=== PATIENT | male | born 1965 | race Caucasian/White ===

== ENCOUNTER → 2018-11-03 | Outpatient (CLI) | payer BC ==
--- NOTE | 2018-11-03 11:25 | US ---
EXAMINATION TYPE: US scrotum with doppler. Grayscale and color Doppler Duplex imaging performed of t he scrotum. DATE OF EXAM: 11/03/2018 COMPARISON: NONE CLINICAL HISTORY: N50.89 Testicular mass. palpable on the left EXAM MEASUREMENTS: TESTICLES: Right Testicle: 4.5 x 2.5 x 3.3 cm Left Testicle: 4.7 x 2.8 x 4.7 cm EPIDIDYMIS HEAD: Right Epididymis: 1.0 cm, 1.2cm cystic cluster Left Epididymis: 2.1 cm, 4.0cm cluster of cysts seen near left epididymis. Doppler performed to assess for testicular vascularity; good bilateral color flow and waveforms are s een. There is no evidence of testicular torsion. Presence of hydroceles: mild on the right and left Presence of varicoceles: no IMPRESSION: 1. Numerous benign left epididymal cysts clustered together measuring up to 4.0 cm. Smaller benign ri ght epididymal cysts are also seen. No suspicious intratesticular mass. 2. Trace bilateral hydroceles.
== END | disposition home or self-care (01) ==
LOC: RADUSWWP 10:42
PROVIDERS: ATTEND Family Medicine
DX: N50.3 Cyst of epididymis (principal)
CPT/HCPCS: 76870; 93975

== ENCOUNTER 2019-07-17 18:09 | Inpatient (IN) | payer BC ==
[2019-07-17] MEDS ORDERED: MORPHINE SULFATE 4 MG/ML SYRINGE IVP STA (19:51)
[2019-07-17] MEDS ORDERED: ONDANSETRON 4 MG/2 ML VIAL IVP STA (19:55)
--- NOTE | 2019-07-17 20:14 | ED ---
Extremity Problem HPI <Robb Torres - Last Filed: 07/17/19 23:23> - General Source: patient Mode of arrival: wheelchair Limitations: no limitations <Annamarie Pollack - Last Filed: 07/17/19 23:53> - General Chief complaint: Extremity Problem,Nontraumatic Stated complaint: Leg pain Time Seen by Provider: 07/17/19 19:19 - History of Present Illness Initial comments: 54-year-old male patient presents to the emergency department today for evaluation of left leg pain. Patient states for the last week he has had an intense pain to the left calf. Patient denies any swelling to the leg. Patient states the pain worsens significantly with ambulation. Patient states he has chronic low back pain. States the leg hurts from the knee down. Denies any saddle anesthesia or loss of bowel or bladder control. Denies any increase or change to his back pain. He denies fever or chills. Denies any known injury. States he is also having pain to the left great toe which did seem to resolve couple of days ago. Patient does have some discoloration to the fourth and fifth toe on the left foot, states his been like this for 1 month. Denies any known vascular issues. States he was a smoker, quit 15 years ago. Patient denies any recent rash, shortness breath, chest pain, abdominal pain, nausea, v omiting, diarrhea, constipation, dizziness, weakness, hematuria, dysuria, urinary urgency, urinary frequency, headache, visual changes, or any other complaints. (Annamarie Pollack) - Related Data Allergies Allergy/AdvReac Type Severity Reaction Status Date / Time ibuprofen [From Motrin] AdvReac Abdominal Verified 07/17/19 18:26 Pain Review of Systems ROS Other: All systems not noted in ROS Statement are negative. <Robb Torres - Last Filed: 07/17/19 23:23> ROS Other: All systems not noted in ROS Statement are negative. <Annamarie Pollack - Last Filed: 07/17/19 23:53> ROS Statement: Those systems with pertinent positive or pertinent negative responses have been documented in the HPI. Past Medical History Past Medical History: No Reported History History of Any Multi-Drug Resistant Organisms: None Reported Past Surgical History: Appendectomy Past Psychological History: No Psychological Hx Reported Smoking Status: Never smoker Past Alcohol Use History: None Reported Past Drug Use History: None Reported <Annamarie Pollack M - Last Filed: 07/17/19 23:53> General Exam Limitations: no limitations General appearance: alert, in no apparent distress, other (This is a well- developed, well-nourished adult male patient in no acute distress. Vital signs upon presentation are temperature 98.1F, pulse 86, respirations 18, blood pressure 154/96, pulse ox 99% on room air.) Eye exam: Present: normal appearance, PERRL, EOMI. Absent: scleral icterus, conjunctival injection, periorbital swelling ENT exam: Present: normal exam, normal oropharynx, mucous membranes moist Respiratory exam: Present: normal lung sounds bilaterally. Absent: respiratory distress, wheezes, rales, rhonchi, stridor Cardiovascular Exam: Present: regular rate, normal rhythm, normal heart sounds. Absent: systolic murmur, diastolic murmur, rubs, gallop, clicks Extremities exam: Present: full ROM, tenderness (Left), normal capillary refill, other (Skin to the foot is cool. Cap refill is 4-5 seconds. There is blue/purple discoloration noted to the left fourth and fifth toe. Left pedal pulse is obtainable only by Doppler, unable to palpate or find the left post tibial pulse by Doppler. Right lower extremity is pink, warm, dry. Pedal and posttibial pulses are 2+ and palpable.). Absent: normal inspection, pedal edema, joint swelling, calf tenderness Neurological exam: Present: alert, oriented X3, CN II-XII intact Psychiatric exam: Present: normal affect, normal mood Skin exam: Present: warm, dry, intact, normal color. Absent: rash <Annamarie Pollack M - Last Filed: 07/17/19 23:53> Course Vital Signs 07/17/19 07/17/19 07/17/19 18:24 20:27 21:33 Temperature 98.1 F 97.9 F Pulse Rate 86 67 71 Respiratory 18 18 16 Rate Blood Pressure 154/96 127/93 132/81 O2 Sat by Pulse 99 99 97 Oximetry 07/17/19 22:52 Temperature Pulse Rate 66 Respiratory 18 Rate Blood Pressure 125/98 O2 Sat by Pulse 97 Oximetry Medical Decision Making - Lab Data Result diagrams: 07/17/19 21:31 07/17/19 21:31 <Robb Torres - Last Filed: 07/17/19 23:23> - Lab Data Result diagrams: 07/17/19 21:31 07/17/19 21:31 - Radiology Data Radiology results: report reviewed, image reviewed <Annamarie Pollack - Last Filed: 07/17/19 23:53> - Medical Decision Making PA attestation: I, Dr. Robb Torres, personally saw and examined the patient. I have reviewed and agree with the resident/PA findings, including all diagnostic interpretations and treatment plans as written unless otherwise stated. I was present for the perkins portions of any procedures performed and inclusive time noted for any critical care statement. Patient was seen and evaluated at bedside along with nurse practitioner. The, patient is a 54-year-old male presents with acute on chronic ischemic symptoms to the left lower extremity. Vital signs are stable. He is here today because he is having medial left lower extremity pain. He has a nonpalpable DP pulse and PT pulse. He does have dopplerable DP pulse of the left lower extremity. CT angiogram of the left lower extremity shows acute thrombotic occlusions to the left lower extremity and multiple areas. Discussed radiology films with vascular surgeon Dr. Lomas recommends patient be admitted to medicine team for possible thrombolysis tomorrow. He recommends the patient be started on heparin. As reviewed. No likely acidosis. Patient's physical examination does not suggest significant acute arterial occlusion given that there is no significant melena the leg. Temperature is similar on both sides. He denies any paresthesias while at rest. Given that patient has clinical presentation concerning for end organ failure discussed patient case with Dr. Coleman was land leasing information clerk for intensive care unit request that patient does not meet criteria for ICU admission that patient stable for the floor. Patient be admitted to [facility] after discussion with Dr. Dolan (Robb Torres) 54-year-old male patient presented to the emergency department today for evaluation of left leg and calf pain. Physical examination did reveal a cool foot, discoloration to the fourth and fifth digits on the left foot, and nonpalpable pedal and posttibial pulses. Was able to find the pedal pulse with Doppler. Patient had left calf tenderness. Cap refill was slow. CT of the aorta with runoff to the lower extremities was obtained and did show acute thrombotic occlusions to the arterial vasculature in the left lower extremity. Case was discussed with my attending physician Dr. Torres, he discussed case with land leasing information clerk vascular surgery. Patient will be admitted for possible procedure tomorrow. We will start high dose heparin and admit to Dr. Dolan, [facility] physician group. Patient is updated regarding diagnosis and plan of care, he is agreeable. (Annamarie Pollack) - Lab Data Lab Results 07/17/19 07/17/19 07/17/19 Range/Units 21:31 21:31 21:31 WBC 17.5 H (3.8-10.6) k/uL RBC 5.34 (4.30-5.90) m/uL Hgb 15.4 (13.0-17.5) gm/dL Hct 46.5 (39.0-53.0) % MCV 87.0 (80.0-100.0) fL MCH 28.8 (25.0-35.0) pg MCHC 33.2 (31.0-37.0) g/dL RDW 12.3 (11.5-15.5) % Plt Count 344 (150-450) k/uL Neutrophils % 74 % Lymphocytes % 16 % Monocytes % 6 % Eosinophils % 2 % Basophils % 1 % Neutrophils # 12.9 H (1.3-7.7) k/uL Lymphocytes # 2.9 (1.0-4.8) k/uL Monocytes # 1.0 (0-1.0) k/uL Eosinophils # 0.4 (0-0.7) k/uL Basophils # 0.2 (0-0.2) k/uL PT (9.0-12.0) sec INR (<1.2) APTT (22.0-30.0) sec Sodium 137 (137-145) mmol/L Potassium 4.8 (3.5-5.1) mmol/L Chloride 107 (98-107) mmol/L Carbon Dioxide 19 L (22-30) mmol/L Anion Gap 11 mmol/L BUN 16 (9-20) mg/dL Creatinine 0.82 (0.66-1.25) mg/dL Est GFR (CKD-EPI)AfAm >90 (>60 ml/min/1.73 sqM) Est GFR (CKD-EPI)NonAf >90 (>60 ml/min/1.73 sqM) Glucose 97 (74-99) mg/dL Plasma Lactic Acid Td 0.7 (0.7-2.0) mmol/L Calcium 9.5 (8.4-10.2) mg/dL Total Bilirubin 0.6 (0.2-1.3) mg/dL AST 28 (17-59) U/L ALT 34 (4-49) U/L Alkaline Phosphatase 66 (38-126) U/L Total Protein 7.5 (6.3-8.2) g/dL Albumin 4.2 (3.5-5.0) g/dL 07/17/19 Range/Units 21:31 WBC (3.8-10.6) k/uL RBC (4.30-5.90) m/uL Hgb (13.0-17.5) gm/dL Hct (39.0-53.0) % MCV (80.0-100.0) fL MCH (25.0-35.0) pg MCHC (31.0-37.0) g/dL RDW (11.5-15.5) % Plt Count (150-450) k/uL Neutrophils % % Lymphocytes % % Monocytes % % Eosinophils % % Basophils % % Neutrophils # (1.3-7.7) k/uL Lymphocytes # (1.0-4.8) k/uL Monocytes # (0-1.0) k/uL Eosinophils # (0-0.7) k/uL Basophils # (0-0.2) k/uL PT 11.6 (9.0-12.0) sec INR 1.1 (<1.2) APTT 24.1 (22.0-30.0) sec Sodium (137-145) mmol/L Potassium (3.5-5.1) mmol/L Chloride (98-107) mmol/L Carbon Dioxide (22-30) mmol/L Anion Gap mmol/L BUN (9-20) mg/dL Creatinine (0.66-1.25) mg/dL Est GFR (CKD-EPI)AfAm (>60 ml/min/1.73 sqM) Est GFR (CKD-EPI)NonAf (>60 ml/min/1.73 sqM) Glucose (74-99) mg/dL Plasma Lactic Acid Td (0.7-2.0) mmol/L Calcium (8.4-10.2) mg/dL Total Bilirubin (0.2-1.3) mg/dL AST (17-59) U/L ALT (4-49) U/L Alkaline Phosphatase (38-126) U/L Total Protein (6.3-8.2) g/dL Albumin (3.5-5.0) g/dL - Radiology Data CT of the abdominal aorta with runoff was obtained. Report was reviewed in its entirety. Impression by Dr. 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 There is some collateral flow reconstitution of the left femoral artery. There is complete thrombosis of the left posterior tibial and peroneal artery. Sigmoid diverticulosis. (Annamarie Pollack) Disposition <Robb Torres - Last Filed: 07/17/19 23:23> Decision to Admit Reason: Admit from EC Decision Date: 07/17/19 Decision Time: 21:22 <Annamarie Pollack - Last Filed: 07/17/19 23:53> Clinical Impression: Thrombosis of artery of left lower extremity Disposition: ADMITTED IP TO THIS [facility] Condition: Serious Referrals: Rg Srinivasan MD [Primary Care Provider] - 1-2 days
--- NOTE | 2019-07-17 21:01 | CT ---
EXAMINATION TYPE: CT angio abd aorta w/Runoff DATE OF EXAM: 07/17/2019 COMPARISON: None HISTORY: LT leg pain, pulseless, black toes. CT DLP: 1194.2 mGycm Automated exposure control for dose reduction was used. CONTRAST: Performed with IV Contrast, patient injected with 125 mL of Isovue 370. Multiple axial sections were obtained from the level of the diaphragm to the bottom of the feet with intravenous contrast. There are 3-D post processed images. Heart size is normal. There is no pericardial effusion. Abdominal aorta is patent. There is mild plaq ue formation on the posterior wall of the lower abdominal aorta. There is arterial flow in the celiac artery and superior mesenteric artery. There is bilateral arterial flow in the renal arteries withou t evidence of stenosis. There is complete occlusion of the left common iliac artery at its origin. Th ere is arterial flow in the right common iliac artery and the right internal and external iliac arter y. There is arterial flow in the right femoral artery. There are some collateral vessels in the pelvis reconstituting the left femoral artery and the left i nguinal region. There is arterial flow in the left femoral and profunda femoris arteries. There is bilateral arterial flow in the popliteal arteries. There is arterial flow in the right side in the anterior tibial and posterior tibial and peroneal arteries. On the left side there is substantially only flow in the anterior tibial artery. There is arterial flow on the right side in the anterior and posterior tibial artery at the ankle. Th ere is only flow in the left anterior tibial artery at the ankle. I do not see evidence of hemodynami c stenosis in the femoral and popliteal arteries. Bladder distends smoothly. There are multiple sigmoid diverticula. There is no sign of diverticulitis . There is no mesenteric edema. There is no ascites or free air. There is no sign of a bowel obstruct ion. There is no adrenal mass. Kidneys show normal contrast opacification. There is no hydronephrosis . Liver spleen stomach pancreas gallbladder appear normal. Visualized bony structures are intact. IMPRESSION: There is complete thrombosis of the left common iliac artery at its origin. There is some collateral flow and reconstitution of the left femoral artery. There is complete thrombosis of the left posterio r tibial and peroneal artery. Sigmoid diverticulosis.
[2019-07-17] MEDS ORDERED: HEPARIN SODIUM,PORCINE 5,000 UNIT/ML 1 ML VIAL IV PRN (21:18)
[2019-07-17] MEDS ORDERED: HEPARIN SODIUM,PORCINE 10,000 UNIT/ML 1 ML VIAL IV ONE (21:18)
[2019-07-17 22:01] LABS: Basophils # (A) 0.2 k/uL (0-0.2); Basophils % (A) 1 %; Eosinophils # (A) 0.4 k/uL (0-0.7); Eosinophils % (A) 2 %; HCT 46.5 % (39.0-53.0); HGB 15.4 gm/dL (13.0-17.5); Lymphocytes # (A) 2.9 k/uL (1.0-4.8); Lymphocytes % (A) 16 %; MCH 28.8 pg (25.0-35.0); MCHC 33.2 g/dL (31.0-37.0); Mean Platelet Volume 8.5; Monocytes % (A) 6 %; Neutrophils # (A) 12.9 k/uL (1.3-7.7); Neutrophils % (A) 74 %; Platelet Count 344 k/uL (150-450); RBC 5.34 m/uL (4.30-5.90); RDW 12.3 % (11.5-15.5); WBC 17.5 k/uL (3.8-10.6)
[2019-07-17 22:14] LABS: ALT 34 U/L (4-49); AST 28 U/L (17-59); African American GFR (CKD) >90 (>60 ml/min/1.73 sqM); Albumin 4.2 g/dL (3.5-5.0); Alkaline Phosphatase 66 U/L (38-126); Anion Gap 11 mmol/L; Blood Urea Nitrogen 16 mg/dL (9-20); Calcium 9.5 mg/dL (8.4-10.2); Carbon Dioxide 19 mmol/L (22-30); Chloride 107 mmol/L (98-107); Glucose 97 mg/dL (74-99); INR 1.1 (<1.2); Non-African American GFR(CKD) >90 (>60 ml/min/1.73 sqM); Partial Thromboplastin Time 24.1 sec (22.0-30.0); Potassium 4.8 mmol/L (3.5-5.1); Prothrombin Time 11.6 sec (9.0-12.0); Sodium 137 mmol/L (137-145); Total Bilirubin 0.6 mg/dL (0.2-1.3); Total Protein 7.5 g/dL (6.3-8.2)
[2019-07-17] MEDS: HEPARIN SOD,PORK IN 0.45% NACL 25,000 UNIT in 0.45% NACL 1 250ML.BAG IV SCH (22:51)
[2019-07-17] MEDS ORDERED: NALOXONE 0.4 MG/ML 1 ML VIAL IV PRN (23:23)
[2019-07-17] MEDS ORDERED: ONDANSETRON 4 MG/2 ML VIAL IVP PRN (23:23)
--- NOTE | 2019-07-18 00:45 | P.HPIM ---
History of Present Illness H&P Date: 07/17/19 Patient is a 54-year-old male with a PMH of tobacco abuse who presented to the ED with complaints of left leg pain. The patient reports that for the past 4-5 months, he had been having left foot pain with walking. He attributed it to his she was and did not pay much attention to it. He reports that 3 weeks ago, he developed a left foot pain at rest. The pain gradually worsened and one week ago, he began to have left leg pain, mostly localized to his left calf, at rest, and worsened significantly with activity. The patient has not seen a physician for this complaint. He denied noticing swelling of the leg. He denied any previous history of clots or being on blood thinners in the past. At the time of the interview, the patient reported 4 out of 10 pain in the left leg, worsened with activity. The patient also denied any additional complaints. He denied chest pain, shortness of nausea, vomiting, fever, chills, or cough. He denied noticing any leg swelling or redness. He denied any numbness or tingling of the leg. He denied recent travel. The patient underwent an extensive ev aluation in the emergency room with a CT angiogram of the abdominal aorta with runoff showing a complete thrombosis of the left common iliac artery at its origin with some collateral flow and reconstitution of the left femoral artery. There was also complete thrombosis of the left posterior tibial and peroneal arteries along with sigmoid diverticulosis incidental finding. Laboratory evaluation had revealed a WBC count 17.5, hemoglobin 15.4, platelet is 244, sodium 137, potassium 4.8, BUN 16, creatinine 0.8, and lactic acid 0.7. As per the emergency room documentation, the patient was discussed with vascular surgeon Dr. Lomas, who recommended initiating the patient on Heparin infusion with thrombolysis planned for tomorrow. Review of Systems Pertinent positives and negatives as discussed in HPI, a complete review of systems was performed and all other systems are negative. Past Medical History Past Medical History: No Reported History History of Any Multi-Drug Resistant Organisms: None Reported Past Surgical History: Appendectomy Past Psychological History: No Psychological Hx Reported Smoking Status: Never smoker Past Alcohol Use History: None Reported Past Drug Use History: None Reported Medications and Allergies Allergies Allergy/AdvReac Type Severity Reaction Status Date / Time ibuprofen [From Motrin] AdvReac Abdominal Verified 07/17/19 18:26 Pain Physical Exam Vitals: Vital Signs Temp Pulse Resp BP Pulse Ox 07/17/19 22:52 66 18 125/98 97 07/17/19 21:33 97.9 F 71 16 132/81 97 07/17/19 20:27 67 18 127/93 99 07/17/19 18:24 98.1 F 86 18 154/96 99 Intake and Output 07/17/19 07/17/19 07/18/19 14:59 22:59 06:59 Other: Weight 96.162 kg General: non toxic, in mild distress, appears at stated age, overweight Derm: no unusual rashes/lesions no unusual ecchymoses, warm, dry Head: atraumatic, normocephalic, symmetric Eyes: EOMI, no lid lag, anicteric sclera, pupils equal round reactive to light ENT: Nose and ears atraumatic, no thrush, no pharyngeal erythema Neck: No thyromegaly, no cervical lymphadenopathy, trachea midline, supple Mouth: no lip lesion, mucus membranes moist Cardiovascular: S1S2 reg, no murmur, positive posterior tibial pulse not palpable on L side, scant dorsalis pedis pulse on L side with regular pulse on R side, capillary refill less than 2 seconds Lungs: CTA bilateral, no rhonchi, no rales , no accessory muscle use Abdominal: soft, nontender to palpation, no guarding, no appreciable organomegaly, normal bowel sounds Ext: no gross muscle atrophy, muscle strength 5 out of 5 in all 4 extremities grossly except LLE due to pain, no contractures, no LLE erythema or edema noted, no LLE mottling with temperature of LEs equal luh Neuro: CN II-XI grossly intact, light touch intact all 4 extremities, finger to nose within normal limits, Psych: Alert, oriented, appropriate affect Results CBC & Chem 7: 07/17/19 21:31 07/17/19 21:31 Labs: Abnormal Lab Results - Last 24 Hours (Table) 07/17/19 07/17/19 Range/Units 21:31 21:31 WBC 17.5 H (3.8-10.6) k/uL Neutrophils # 12.9 H (1.3-7.7) k/uL Carbon Dioxide 19 L (22-30) mmol/L Assessment and Plan Plan: L leg arterial thrombosis -Vascular surgery consulted -Continue with heparin infusion -Planned for thrombolysis in a.m. -Neurovascular checks -Pain control Leukocytosis -Likely due to acute stressor -No signs of active infection at this time -Monitor CMP DVT prophylaxis -Heparin infusion The patient is admitted with an anticipated greater than 2 midnight stay for evaluation of leg pain. CODE STATUS:Full Code Discussed with: Patient Anticipated discharge date: 2-[address]: Home A total of 35 minutes was spent on the care of this complex patient more than 50% of the time was spent in counseling and care coordination.
[2019-07-18 06:36] LABS: Basophils # (A) 0.4 k/uL (0-0.2); Basophils % (A) 3 %; Eosinophils # (A) 0.2 k/uL (0-0.7); Eosinophils % (A) 2 %; HCT 47.9 % (39.0-53.0); HGB 15.8 gm/dL (13.0-17.5); Lymphocytes # (A) 2.8 k/uL (1.0-4.8); Lymphocytes % (A) 21 %; MCH 29.8 pg (25.0-35.0); MCV 90.1 fL (80.0-100.0); Mean Platelet Volume 8.9; Monocytes # (A) 0.9 k/uL (0-1.0); Monocytes % (A) 7 %; Neutrophils # (A) 8.7 k/uL (1.3-7.7); Neutrophils % (A) 66 %; Platelet Count 558 k/uL (150-450); RBC 5.31 m/uL (4.30-5.90); RDW 12.4 % (11.5-15.5); WBC 13.3 k/uL (3.8-10.6)
[2019-07-18] MEDS: MORPHINE SULFATE 4 MG/ML SYRINGE IV PRN ×4 (07:34→22:14)
[2019-07-18] MEDS: SODIUM CHLORIDE 0.9% 1,000 ML IV SCH ×2 (07:40→13:25)
--- NOTE | 2019-07-18 09:41 | P.PN ---
Subjective Chart was reviewed patient was seen and examined. Patient had subacute onset of the pain in the left cough. He had preceding pain and claudication the left foot for many weeks prior to this. CT in November showed thrombosis in the left leg arterial system. His no heparin drip tolerating well. He has history of smoking very remotely stopped smoking 10 years ago. No any other known conditions. Objective - Vital Signs Vital signs: Vital Signs Temp 97.6 F 07/18/19 08:00 Pulse 69 07/18/19 08:00 Resp 18 07/18/19 08:00 BP 137/83 07/18/19 08:00 Pulse Ox 98 07/18/19 08:00 Intake & Output 07/17/19 07/18/19 07/18/19 18:59 06:59 18:59 Intake Total 137.318 Output Total 800 Balance -662.682 Weight 96.162 kg 91.5 kg Intake: Intake, IV Titration 137.318 Amount Heparin Sod,Pork in 0.45% 137.318 NaCl 25,000 unit In 0.45 % NaCl 1 250ml.bag @ 18 UNITS/KG/HR 17.309 mls/hr IV .[id number] [facility] Rx#: [id number] Output: Urine 800 Other: Voiding Method Urinal Urinal - Labs CBC & Chem 7: 07/18/19 05:16 07/17/19 21:31 Labs: Abnormal Lab Results - Last 24 Hours (Table) 07/17/19 07/17/19 07/18/19 Range/Units 21:31 21:31 05:16 WBC 17.5 H (3.8-10.6) k/uL Plt Count (150-450) k/uL Neutrophils # 12.9 H (1.3-7.7) k/uL Basophils # (0-0.2) k/uL APTT 52.6 H (22.0-30.0) sec Carbon Dioxide 19 L (22-30) mmol/L 07/18/19 Range/Units 05:16 WBC 13.3 H (3.8-10.6) k/uL Plt Count 558 H (150-450) k/uL Neutrophils # 8.7 H (1.3-7.7) k/uL Basophils # 0.4 H (0-0.2) k/uL APTT (22.0-30.0) sec Carbon Dioxide (22-30) mmol/L Assessment and Plan Plan: 54-year-old male with remote history of smoking presenting now with the thrombosis in the left leg arterial system. He is maintained on heparin platelets and statin and vascular surgery consultation Depends on the outcomes of his intervention and the reason for this occlusion he might need further workup for thromboembolic state. Order echocardiogram, monitor on telemetry to evaluate for any atrial fibrillation, a need hypercoagulability workup. He needs heart event monitor on discharge. Check A1c and lipid panel.
--- NOTE | 2019-07-18 10:30 | P.GSCN ---
<Mariela Cotton - Last Filed: 07/18/19 15:05> History of Present Illness Consult date: 07/18/19 History of present illness: Patient is 54-year-old male with past medical history of tobacco abuse that presented to the emergency department with complaints of left leg pain. He reports that the pain started approximately 1 month ago in his left foot and big toe, then the pain stopped in his foot, however the pain was then began in the left leg. He denies any redness or swelling. He denies any recent traveling or injuries. The patient states he has no significant medical history, no family history of any clotting or bleeding disorders. Denies any known vascular disease. He denies any shortness of breath or chest pain. He states pain in his left lower extremity has improved with pain medications. CT angiogram of abdominal aorta with runoff showed complete thrombosis of the left common iliac artery at its origin. There is some collateral flow and reconstitution of the left femoral artery. There is complete thrombosis of the left posterior tibial and peroneal artery. Review of Systems Review of systems complete and all pertinent positives and negatives as reported in the HPI. Past Medical History Past Medical History: No Reported History History of Any Multi-Drug Resistant Organisms: None Reported Past Surgical History: Appendectomy Additional Past Surgical History / Comment(s): left knee orthoscopic surgery Past Anesthesia/Blood Transfusion Reactions: No Reported Reaction Past Psychological History: No Psychological Hx Reported Smoking Status: Never smoker Past Alcohol Use History: None Reported Past Drug Use History: None Reported - Past Family History Father Family Medical History: Myocardial Infarction (MO) Additional Family Medical History / Comment(s): of [place] at age 50 Mother Family Medical History: Cancer, Coronary Artery Disease (CAD) Medications and Allergies Home Medications Medication Instructions Recorded Confirmed Type Olopatadine HCl [Patanol] 1 drop BOTH EYES Q12H PRN 07/18/19 07/18/19 History Allergies Allergy/AdvReac Type Severity Reaction Status Date / Time ibuprofen [From Motrin] AdvReac Nausea & Verified 07/18/19 08:13 Vomiting & Diarrhea Surgical - Exam Vital Signs Temp Pulse Resp BP Pulse Ox 98.1 F 86 18 154/96 99 07/17/19 18:24 07/17/19 18:24 07/17/19 18:24 07/17/19 18:24 07/17/19 18:24 General appearance: The patient is alert, oriented, in no acute distress. HET: Head is normocephalic and atraumatic. Neck: Supple without lymphadenopathy. Trachea midline. Heart: S1 S2. Regular rate and rhythm. Lungs: No crackles or wheezes are heard. Abdomen: Soft, nontender, nondistended with bowel sounds. Extremities: Normal skin color and turgor. Bilateral lower extremities warm to the touch. No cyanosis, rash, ulceration, clubbing, or edema. Radial pulses are 2/4 bilaterally. Left lower extremity monophasic femoral and her dorsalis pedis Doppler signal, absent popliteal and posterior tibialis signal. Left fifth toe with mild erythema. Neurological: No focal deficits. Strength and sensation are grossly intact. Motor sensory intact to bilateral lower extremities. Results - Labs 07/18/19 05:16 07/17/19 21:31 Abnormal Lab Results - Last 24 Hours (Table) 07/17/19 07/17/19 07/18/19 Range/Units 21:31 21:31 05:16 WBC 17.5 H (3.8-10.6) k/uL Plt Count (150-450) k/uL Neutrophils # 12.9 H (1.3-7.7) k/uL Basophils # (0-0.2) k/uL APTT 52.6 H (22.0-30.0) sec Carbon Dioxide 19 L (22-30) mmol/L 07/18/19 Range/Units 05:16 WBC 13.3 H (3.8-10.6) k/uL Plt Count 558 H (150-450) k/uL Neutrophils # 8.7 H (1.3-7.7) k/uL Basophils # 0.4 H (0-0.2) k/uL APTT (22.0-30.0) sec Carbon Dioxide (22-30) mmol/L Diabetes panel 07/17/19 Range/Units 21:31 Sodium 137 (137-145) mmol/L Potassium 4.8 (3.5-5.1) mmol/L Chloride 107 (98-107) mmol/L Carbon Dioxide 19 L (22-30) mmol/L BUN 16 (9-20) mg/dL Creatinine 0.82 (0.66-1.25) mg/dL Glucose 97 (74-99) mg/dL Calcium 9.5 (8.4-10.2) mg/dL AST 28 (17-59) U/L ALT 34 (4-49) U/L Alkaline Phosphatase 66 (38-126) U/L Total Protein 7.5 (6.3-8.2) g/dL Albumin 4.2 (3.5-5.0) g/dL Calcium panel 07/17/19 Range/Units 21:31 Calcium 9.5 (8.4-10.2) mg/dL Albumin 4.2 (3.5-5.0) g/dL Pituitary panel 07/17/19 Range/Units 21:31 Sodium 137 (137-145) mmol/L Potassium 4.8 (3.5-5.1) mmol/L Chloride 107 (98-107) mmol/L Carbon Dioxide 19 L (22-30) mmol/L BUN 16 (9-20) mg/dL Creatinine 0.82 (0.66-1.25) mg/dL Glucose 97 (74-99) mg/dL Calcium 9.5 (8.4-10.2) mg/dL Adrenal panel 07/17/19 Range/Units 21:31 Sodium 137 (137-145) mmol/L Potassium 4.8 (3.5-5.1) mmol/L Chloride 107 (98-107) mmol/L Carbon Dioxide 19 L (22-30) mmol/L BUN 16 (9-20) mg/dL Creatinine 0.82 (0.66-1.25) mg/dL Glucose 97 (74-99) mg/dL Calcium 9.5 (8.4-10.2) mg/dL Total Bilirubin 0.6 (0.2-1.3) mg/dL AST 28 (17-59) U/L ALT 34 (4-49) U/L Alkaline Phosphatase 66 (38-126) U/L Total Protein 7.5 (6.3-8.2) g/dL Albumin 4.2 (3.5-5.0) g/dL Assessment and Plan Assessment: Left lower extremity pain Thrombosis of the left common iliac artery Complete thrombosis of the left posterior tibial and peroneal artery Plan: Discussed patient with Dr. Lomas. Patient was started on a heparin drip, will continue until further evaluation. Keep patient nothing by mouth. Further recommendations to follow. Thank you for this consultation and allowing us to take part in the plan of care of this patient during his hospital stay. The above dictated assessment and findings were discussed with Dr. Lomas. The impression and plan of care have been directed as dictated. <Tito Lomas - Last Filed: 07/18/19 16:40> Surgical - Exam Vital Signs Temp Pulse Resp BP Pulse Ox 98.1 F 86 18 154/96 99 07/17/19 18:24 07/17/19 18:24 07/17/19 18:24 07/17/19 18:24 07/17/19 18:24 Results - Labs 07/18/19 05:16 07/17/19 21:31 Abnormal Lab Results - Last 24 Hours (Table) 07/17/19 07/17/19 07/18/19 Range/Units 21:31 21:31 05:16 WBC 17.5 H (3.8-10.6) k/uL Plt Count (150-450) k/uL Neutrophils # 12.9 H (1.3-7.7) k/uL Basophils # (0-0.2) k/uL APTT 52.6 H (22.0-30.0) sec Carbon Dioxide 19 L (22-30) mmol/L 07/18/19 Range/Units 05:16 WBC 13.3 H (3.8-10.6) k/uL Plt Count 558 H (150-450) k/uL Neutrophils # 8.7 H (1.3-7.7) k/uL Basophils # 0.4 H (0-0.2) k/uL APTT (22.0-30.0) sec Carbon Dioxide (22-30) mmol/L Diabetes panel 07/17/19 Range/Units 21:31 Sodium 137 (137-145) mmol/L Potassium 4.8 (3.5-5.1) mmol/L Chloride 107 (98-107) mmol/L Carbon Dioxide 19 L (22-30) mmol/L BUN 16 (9-20) mg/dL Creatinine 0.82 (0.66-1.25) mg/dL Glucose 97 (74-99) mg/dL Calcium 9.5 (8.4-10.2) mg/dL AST 28 (17-59) U/L ALT 34 (4-49) U/L Alkaline Phosphatase 66 (38-126) U/L Total Protein 7.5 (6.3-8.2) g/dL Albumin 4.2 (3.5-5.0) g/dL Calcium panel 07/17/19 Range/Units 21:31 Calcium 9.5 (8.4-10.2) mg/dL Albumin 4.2 (3.5-5.0) g/dL Pituitary panel 07/17/19 Range/Units 21:31 Sodium 137 (137-145) mmol/L Potassium 4.8 (3.5-5.1) mmol/L Chloride 107 (98-107) mmol/L Carbon Dioxide 19 L (22-30) mmol/L BUN 16 (9-20) mg/dL Creatinine 0.82 (0.66-1.25) mg/dL Glucose 97 (74-99) mg/dL Calcium 9.5 (8.4-10.2) mg/dL Adrenal panel 07/17/19 Range/Units 21:31 Sodium 137 (137-145) mmol/L Potassium 4.8 (3.5-5.1) mmol/L Chloride 107 (98-107) mmol/L Carbon Dioxide 19 L (22-30) mmol/L BUN 16 (9-20) mg/dL Creatinine 0.82 (0.66-1.25) mg/dL Glucose 97 (74-99) mg/dL Calcium 9.5 (8.4-10.2) mg/dL Total Bilirubin 0.6 (0.2-1.3) mg/dL AST 28 (17-59) U/L ALT 34 (4-49) U/L Alkaline Phosphatase 66 (38-126) U/L Total Protein 7.5 (6.3-8.2) g/dL Albumin 4.2 (3.5-5.0) g/dL Assessment and Plan Plan: Discussed surgical options with patient. Will place thrombolytic catheter today and initiate thrombolysis across the iliac occlusion. It appears to have some chronic appearance as well and may need to be stented tomorrow. This was discussed with the patient in full detail.
--- NOTE | 2019-07-18 13:00 | ECHOF ---
Referral Reason:arterial thrombosis, rule out heart thrombi MEASUREMENTS -------- HEIGHT: 188.0 cm WEIGHT: 91.2 kg BP: 137/83 RVIDd: 3.1 cm (< 3.3) IVSd: 1.2 cm (0.6 - 1.1) LVIDd: 4.3 cm (3.9 - 5.3) LVPWd: 1.0 cm (0.6 - 1.1) IVSs: 1.7 cm LVIDs: 2.7 cm LVPWs: 1.6 cm LA Diam: 3.6 cm (2.7 - 3.8) LAESV Index (A-L): 25.53 ml/m Ao Diam: 3.8 cm (2.0 - 3.7) AV Cusp: 2.8 cm (1.5 - 2.6) MV EXCURSION: 19.783 mm (> 18.000) MV EF SLOPE: 119 mm/s (70 - 150) EPSS: 0.4 cm MV E Jarad: 0.69 m/s MV DecT: 242 ms MV A Jarad: 0.69 m/s MV E/A Ratio: 0.99 RAP: 5.00 mmHg RVSP: 18.36 mmHg TAPSE: 21.39 mm FINDINGS -------- Sinus rhythm. This was a technically good study. The left ventricular size is normal. There is borderline concentric left ventricular hypertrophy. Overall left ventricular systolic function is normal with, an EF between 60 - 65 %. The right ventricle is normal in size. Normal LA size by volume 22+/-6 ml/m2. The right atrium is normal in size. Interatrial and interventricular septum intact. The aortic valve is trileaflet and appears structurally normal. The mitral valve is normal. Mild tricuspid regurgitation present. Right ventricular systolic pressure is normal at < 35 mmHg. There is no pulmonic regurgitation present. The aortic root is dilated measuring 3.8cm. Normal inferior vena cava with normal inspiratory collapse consistent with estimated right atrial pre ssure of 5 mmHg. There is no pericardial effusion. CONCLUSIONS -------- 1. Sinus rhythm. 2. This was a technically good study. 3. The left ventricular size is normal. 4. There is borderline concentric left ventricular hypertrophy. 5. Overall left ventricular systolic function is normal with, an EF between 60 - 65 %. 6. The right ventricle is normal in size. 7. Normal LA size by volume 22+/-6 ml/m2. 8. The right atrium is normal in size. 9. Interatrial and interventricular septum intact. 10. The aortic valve is trileaflet and appears structurally normal. 11. The mitral valve is normal. 12. Mild tricuspid regurgitation present. 13. Right ventricular systolic pressure is normal at < 35 mmHg. 14. There is no pulmonic regurgitation present. 15. The aortic root is dilated measuring 3.8cm. 16. Normal inferior vena cava with normal inspiratory collapse consistent with estimated right atrial pressure of 5 mmHg. 17. There is no pericardial effusion. HANDLE AND VENT MACHINE OPERATOR: Melony Shannon RDCS
[2019-07-18] MEDS: HEPARIN SOD,PORK IN 0.45% NACL 25,000 UNIT in 0.45% NACL 1 250ML.BAG IV SCH ×2 (13:18→13:23)
[2019-07-18] MEDS ORDERED: ALTEPLASE 2 MG VIAL (CATHFLO) IV STA (15:31)
[2019-07-18] MEDS ORDERED: IV FLUID CONTINUATION 1,000 ML IV ONE (16:00)
[2019-07-18] MEDS: MIDAZOLAM 2 MG/2 ML VIAL IVP ONE ×2 (16:03→16:07)
[2019-07-18] MEDS ORDERED: fentaNYL (PF) 50 MCG/ML 2 ML AMP IVP ONE (16:03)
[2019-07-18] MEDS ORDERED: LIDOCAINE 1% INJ 10MG/ML (20 ML MDV) SQ ONE (16:06)
[2019-07-18] MEDS ORDERED: IOPAMIDOL-250 100ML BTL INTRAARTER ONE ×2 (16:30)
[2019-07-18] MEDS ORDERED: SODIUM CHLORIDE 0.9% 500 ML 500 ML IV ONE (16:35)
[2019-07-18] MEDS: ALTEPLASE 10 MG in SODIUM CHLORIDE 0.9% 100 ML IA ONE (16:35)
--- NOTE | 2019-07-18 16:52 | P.OP ---
Description of Procedure: Preoperative diagnosis: Acute left lower extremity iliac occlusion with critical limb ischemia Postop diagnosis: Acute left lower extremity iliac occlusion with critical limb ischemia Procedure: 1. Aortogram with bilateral iliac angiogram via right common femoral artery access under ultrasound guidance. 2. Selective left femoral angiogram 3. Placement of thrombolytic catheter across the common iliac and external iliac artery 4. Initiation of thrombolysis Surgeon: Abebe Anesthesia: Moderate sedation times 24 minutes Estimated blood loss: 5 mL Complications: None Condition: Stable Findings: Aorta is patent without any signs of occlusion. Left common iliac artery is occluded with reconstitution at the common femoral artery. There is approximately 16 cm occlusive area of the iliac and external iliac artery. Indication for procedure: 54-year-old gentleman who presented initially to the emergency department yesterday with new onset pain in his left calf. Patient states he's been having pain off and on for the last week with discoloration of his toes over the last couple months. CT angiogram was obtained in the emergency department which demonstrated occlusion of the left common iliac artery and external iliac artery with reconstitution at the common femoral. There was also occlusive disease noted in the anterior tibial and peroneal arteries distally. He presents today for thrombolytic catheter placement. Operative narrative: After written informed consent was obtained the patient all risks benefits competitions were described the patient is brought to the [facility] and laid in a supine position. The area of the right groin was prepped and draped in the usual sterile fashion. Local anesthesia with moderate sedation was performed with continuous pulse ox monitoring and EKG monitoring. Utilizing ultrasound the right common femoral artery was visualized and shown to be patent without any significant plaque. Utilizing a multipurpose needle under ultrasound guidance the artery was accessed. Guidewire was placed followed by 5-Chilean sheath. 035 Glidewire advantage was then placed into the aorta followed by a rim catheter. Angiogram was then obtained of the aorta. 035 Glidewire advantage was then placed across the iliac lesion and the catheter was placed into the femoral artery at which time angiogram was obtained demonstrating good intraluminal access of the common femoral artery. There was takeoff of the profundus as well as the SFA. 035 Glidewire advantage was then placed down the SFA and rim catheter was removed. Thrombolytic catheter with 20 cm infusion length was then guided over the guidewire across the common iliac and external iliac artery on the left into the common femoral artery. Guidewire was then removed. A 5-Chilean sheath was then secured in place with nylon suture. 2 mg of TPA was then infused into the thrombolytic catheter followed by TPA drip at 1 mg per hour. Disposition: Patient tolerated the procedure well and will be sent to the ICU for continuous monitoring and thrombolysis overnight. We will recheck tomorrow for left lower extremity angiogram and possible balloon angioplasty with stenting.
[2019-07-18 17:36] LABS: Glucose,Whole Blood 107 mg/dL (75-99)
[2019-07-18 17:36] LABS: Basophils # (A) 0.3 k/uL (0-0.2); Basophils % (A) 2 %; Eosinophils # (A) 0.3 k/uL (0-0.7); Eosinophils % (A) 2 %; HCT 45.6 % (39.0-53.0); HGB 14.9 gm/dL (13.0-17.5); Lymphocytes # (A) 2.5 k/uL (1.0-4.8); Lymphocytes % (A) 19 %; MCH 28.9 pg (25.0-35.0); MCHC 32.6 g/dL (31.0-37.0); MCV 88.4 fL (80.0-100.0); Mean Platelet Volume 8.4; Monocytes # (A) 0.7 k/uL (0-1.0); Monocytes % (A) 5 %; Neutrophils # (A) 9.2 k/uL (1.3-7.7); Neutrophils % (A) 71 %; Platelet Count 353 k/uL (150-450); RBC 5.15 m/uL (4.30-5.90); RDW 12.3 % (11.5-15.5)
[2019-07-18 17:59] LABS: African American GFR (CKD) >90 (>60 ml/min/1.73 sqM); Blood Urea Nitrogen 14 mg/dL (9-20); Non-African American GFR(CKD) >90 (>60 ml/min/1.73 sqM)
[2019-07-18 18:15] LABS: INR 1.2 (<1.2); Partial Thromboplastin Time 54.4 sec (22.0-30.0); Prothrombin Time 11.9 sec (9.0-12.0)
[2019-07-18] MEDS ORDERED: HEPARIN SOD,PORK IN 0.45% NACL 25,000 UNIT in 0.45% NACL 1 250ML.BAG IV SCH (19:15)
[2019-07-18] MEDS: HYDROmorphone 1 MG/ML 1 ML SYRINGE IVP PRN (20:12)
[2019-07-19] MEDS: ALTEPLASE 10 MG in SODIUM CHLORIDE 0.9% 100 ML IA ONE (00:38)
[2019-07-19] MEDS: HYDROmorphone 1 MG/ML 1 ML SYRINGE IVP PRN ×4 (03:01→22:54)
[2019-07-19 05:51] LABS: Basophils # (A) 0.2 k/uL (0-0.2); Basophils % (A) 1 %; Eosinophils # (A) 0.1 k/uL (0-0.7); Eosinophils % (A) 1 %; HCT 46.4 % (39.0-53.0); HGB 15.2 gm/dL (13.0-17.5); Lymphocytes # (A) 1.8 k/uL (1.0-4.8); Lymphocytes % (A) 12 %; MCH 28.7 pg (25.0-35.0); MCHC 32.7 g/dL (31.0-37.0); MCV 87.6 fL (80.0-100.0); Mean Platelet Volume 7.9; Monocytes % (A) 6 %; Neutrophils # (A) 12.2 k/uL (1.3-7.7); Neutrophils % (A) 79 %; Platelet Count 292 k/uL (150-450); RBC 5.29 m/uL (4.30-5.90); RDW 12.4 % (11.5-15.5); WBC 15.4 k/uL (3.8-10.6)
[2019-07-19 06:09] LABS: African American GFR (CKD) >90 (>60 ml/min/1.73 sqM); Anion Gap 11 mmol/L; Blood Urea Nitrogen 15 mg/dL (9-20); Calcium 8.8 mg/dL (8.4-10.2); Carbon Dioxide 22 mmol/L (22-30); Chloride 105 mmol/L (98-107); Cholesterol 179 mg/dL (<200); Glucose 110 mg/dL (74-99); HDL Cholesterol 40 mg/dL (40-60); LDL Cholesterol,Calculated 116 mg/dL (0-99); Non-African American GFR(CKD) >90 (>60 ml/min/1.73 sqM); Potassium 4.2 mmol/L (3.5-5.1); Sodium 138 mmol/L (137-145); Triglycerides 115 mg/dL (<150)
--- NOTE | 2019-07-19 08:17 | IR ---
Fluoroscopy HISTORY: Pain in left leg 4.1 minutes fluoroscopy time supplied to the referring clinician. 61 intraoperative C-arm images doc ument the procedure. See dictated report from vascular surgery.
--- NOTE | 2019-07-19 10:01 | P.PN ---
Progress Note - Text Progress Note Date: 07/19/19 Patient seen and examined this morning. Patient states he is feeling slightly better than he was previously. Foot is warmer and pain is more controlled. He did have some issues overnight with urination and had a Spangler placed at that time. He denies any fevers, chills, chest pain or shortness of breath. Fibrinogen level is greater than 150 at recheck this morning. Vital signs stable Left foot is warm with good capillary refill. Positive DP signal noted to be monophasic. Palpable femoral pulse on the left though it is diminished compared to the right. Right femoral sheath is intact without any signs of hematoma. Patient to return to [facility] this morning around noon for recheck and possible balloon angioplasty and stenting of the iliac artery.
[2019-07-19] MEDS ORDERED: IV FLUID CONTINUATION 1,000 ML IV ONE (10:20)
--- NOTE | 2019-07-19 10:22 | P.PN ---
Subjective Progress Note Date: 07/19/19 And evaluated lying flat in bed. Patient states he has significant back pain. Patient was unable to eat his breakfast due to inability sitting up today. Patient denies any bleeding. Objective - Vital Signs Vital signs: Vital Signs Temp 98.1 F 07/19/19 04:00 Pulse 68 07/19/19 07:15 Resp 14 07/19/19 07:15 BP 144/93 07/19/19 07:15 Pulse Ox 97 07/19/19 07:15 Intake & Output 07/18/19 07/19/19 07/19/19 18:59 06:59 18:59 Intake Total 205.682 831.333 65 Output Total 450 Balance 205.682 831.333 -385 Weight 95.2 kg Intake: IV 93 765 65 Alteplase 10 mg In Sodium 110 10 Chloride 0.9% 100 ml @ 1 MG/HR 10 mls/hr IA .Q10H [facility] Rx#:[id number] Heparin Sod,Pork in 0.45% 55 5 NaCl 25,000 unit In 0.45 % NaCl 1 250ml.bag @ 5 mls/hr IV .Q24H [facility] Rx#: [id number] Sodium Chloride 0.9% 1, 600 50 000 ml @ 50 mls/hr IV . Q20H [facility] Rx#:[id number] Intake, IV Titration 112.682 66.333 Amount Alteplase 10 mg In Sodium 66.333 Chloride 0.9% 100 ml @ 1 MG/HR 10 mls/hr IA .Q10H [facility] Rx#:[id number] Heparin Sod,Pork in 0.45% 112.682 NaCl 25,000 unit In 0.45 % NaCl 1 250ml.bag @ 18 UNITS/KG/HR 17.309 mls/hr IV .[id number] [facility] Rx#: [id number] Output: Urine 450 Other: Voiding Method Urinal Urinal - Exam General appearance: The patient is alert, oriented, in no acute distress. HET: Head is normocephalic and atraumatic. Pupils are equal and reactive. Oropharynx is clear without lesions. Heart: S1 S2. Regular rate and rhythm. Lungs: No crackles or wheezes are heard. Abdomen: Soft, nontender, nondistended with bowel sounds. Extremities: Left lower extremity warm to touch, positive DP and femoral monophasic Doppler signal. Right groin sheath intact without any evidence of bleeding or hematoma. - Labs CBC & Chem 7: 07/19/19 05:25 07/19/19 05:25 Labs: Abnormal Lab Results - Last 24 Hours (Table) 07/18/19 07/18/19 07/18/19 Range/Units 17:14 17:14 17:18 WBC 13.0 H (3.8-10.6) k/uL Neutrophils # 9.2 H (1.3-7.7) k/uL Basophils # 0.3 H (0-0.2) k/uL INR 1.2 H (<1.2) APTT 54.4 H (22.0-30.0) sec Fibrinogen (200-500) mg/dL Glucose (74-99) mg/dL POC Glucose (mg/dL) 107 H (75-99) mg/dL LDL Cholesterol, Calc (0-99) mg/dL 07/18/19 07/19/19 07/19/19 Range/Units 21:10 05:25 05:25 WBC 15.4 H (3.8-10.6) k/uL Neutrophils # 12.2 H (1.3-7.7) k/uL Basophils # (0-0.2) k/uL INR (<1.2) APTT 32.0 H (22.0-30.0) sec Fibrinogen 517 H 194 L (200-500) mg/dL Glucose (74-99) mg/dL POC Glucose (mg/dL) (75-99) mg/dL LDL Cholesterol, Calc (0-99) mg/dL 07/19/19 Range/Units 05:25 WBC (3.8-10.6) k/uL Neutrophils # (1.3-7.7) k/uL Basophils # (0-0.2) k/uL INR (<1.2) APTT (22.0-30.0) sec Fibrinogen (200-500) mg/dL Glucose 110 H (74-99) mg/dL POC Glucose (mg/dL) (75-99) mg/dL LDL Cholesterol, Calc 116 H (0-99) mg/dL Assessment and Plan Assessment: Left lower extremity pain Thrombosis of the left common iliac artery Complete thrombosis of the left posterior tibial and peroneal artery Status post thrombolytics Plan: Discussed patient with Dr. Lomas. Patient is scheduled to go this afternoon for recheck and possible stenting of the left iliac artery and possible balloon angioplasty. The above dictated assessment and findings were discussed with Dr. Lomas. The impression and plan of care have been directed as dictated.
[2019-07-19] MEDS ORDERED: HYDROmorphone 1 MG/ML 1 ML SYRINGE IVP ONE ×2 (10:26→12:09)
[2019-07-19] MEDS: HEPARIN SODIUM 1,000 UN/ML (10ML VL) IV ONE ×2 (10:58→11:55)
[2019-07-19] MEDS ORDERED: LIDOCAINE 1% INJ 10MG/ML (20 ML MDV) SQ ONE (11:30)
[2019-07-19] MEDS: fentaNYL (PF) 50 MCG/ML 2 ML AMP IVP ONE ×2 (11:47→12:29)
[2019-07-19] MEDS ORDERED: MIDAZOLAM 2 MG/2 ML VIAL IVP ONE (11:48)
[2019-07-19] MEDS: NITROGLYCERIN 1000MCG/10ML SYRINGE INTRAARTER ONE ×2 (12:15→12:32)
[2019-07-19] MEDS ORDERED: IOPAMIDOL-370 100ML BTL INJ ONE (12:40)
[2019-07-19] MEDS ORDERED: IOPAMIDOL-250 50ML BTL INTRAARTER ONE (12:54)
[2019-07-19] MEDS ORDERED: PROTAMINE SULFATE 10 MG/ML 5 ML VIAL IV ONE (13:00)
[2019-07-19 13:45] LABS: Hemoglobin A1C 5.4 % (4.0-6.0)
--- NOTE | 2019-07-19 14:07 | IR ---
EXAMINATION TYPE: IR stent intravas non coronary DATE OF EXAM: 07/19/2019 CLINICAL HISTORY: Left leg pain. TECHNIQUE: Fluoroscopy. COMPARISON: None. FINDINGS: Fluoroscopic guidance was provided during angiogram with lower extremity stent insertion p rocedure performed by Dr. Lomas. A total of 29.1 seconds of fluoroscopic time was utilized during the procedure and multiple cine runs are acquired. Please refer to procedure note for further details as I was not present nor performed procedure. IMPRESSION: As Above.
[2019-07-19] MEDS: SODIUM CHLORIDE 0.9% 1,000 ML IV SCH (17:45)
[2019-07-20] MEDS: HYDROmorphone 1 MG/ML 1 ML SYRINGE IVP PRN ×5 (04:14→22:07)
[2019-07-20 05:51] LABS: Basophils # (A) 0.2 k/uL (0-0.2); Basophils % (A) 1 %; Eosinophils # (A) 0.2 k/uL (0-0.7); Eosinophils % (A) 1 %; HCT 42.7 % (39.0-53.0); Lymphocytes # (A) 1.9 k/uL (1.0-4.8); Lymphocytes % (A) 12 %; MCHC 32.9 g/dL (31.0-37.0); Mean Platelet Volume 7.7; Monocytes # (A) 1.1 k/uL (0-1.0); Monocytes % (A) 7 %; Neutrophils % (A) 77 %; Platelet Count 268 k/uL (150-450); RBC 4.85 m/uL (4.30-5.90); RDW 12.3 % (11.5-15.5); WBC 15.5 k/uL (3.8-10.6)
[2019-07-20 06:18] LABS: African American GFR (CKD) >90 (>60 ml/min/1.73 sqM); Anion Gap 8 mmol/L; Blood Urea Nitrogen 10 mg/dL (9-20); Calcium 8.4 mg/dL (8.4-10.2); Carbon Dioxide 28 mmol/L (22-30); Chloride 102 mmol/L (98-107); Glucose 101 mg/dL (74-99); Non-African American GFR(CKD) >90 (>60 ml/min/1.73 sqM); Potassium 4.2 mmol/L (3.5-5.1); Sodium 138 mmol/L (137-145)
[2019-07-20] MEDS: APIXABAN 5 MG TAB PO SCH ×2 (09:36→20:37)
--- NOTE | 2019-07-20 10:23 | P.PN ---
Subjective Progress Note Date: 07/20/19 Patient seen and evaluated with Dr. Cassidy. Patient is lying in bed. Reports pain in the left foot with palpation and movement. He denies any active bleeding, abdominal pain, shortness of breath, or chest pain. Objective - Vital Signs Vital signs: Vital Signs Temp 98.3 F 07/20/19 08:00 Pulse 79 07/20/19 09:00 Resp 11 L 07/20/19 09:00 BP 140/85 07/20/19 09:00 Pulse Ox 95 07/20/19 09:00 Intake & Output 07/19/19 07/20/19 07/20/19 18:59 06:59 18:59 Intake Total 1040 600 150 Output Total 1055 820 250 Balance -15 - Weight 92 kg Intake: IV 1040 600 150 Alteplase 10 mg In Sodium 60 Chloride 0.9% 100 ml @ 1 MG/HR 10 mls/hr IA .Q10H [facility] Rx#:[id number] Heparin Sod,Pork in 0.45% 30 NaCl 25,000 unit In 0.45 % NaCl 1 250ml.bag @ 5 mls/hr IV .Q24H [facility] Rx#: [id number] Sodium Chloride 0.9% 1, 450 600 150 000 ml @ 50 mls/hr IV . Q20H [facility] Rx#:[id number] Output: Urine 1055 820 250 Other: Voiding Method Indwelling Catheter Indwelling Catheter - Exam General appearance: The patient is alert, oriented, in no acute distress. HET: Head is normocephalic and atraumatic. Heart: S1 S2. Regular rate and rhythm. Lungs: No crackles or wheezes are heard. Abdomen: Soft, nontender, nondistended with bowel sounds. Extremities: Bilateral lower extremities warm to touch with good capillary refill. Left lower extremity foot TTP, positive monophasic DP doppler signal, palpable PT. Right groin with eccymosis, without any evidence of bleeding or hematoma. Right palpable DP and PT pulses. - Labs CBC & Chem 7: 07/20/19 05:37 07/20/19 05:37 Labs: Abnormal Lab Results - Last 24 Hours (Table) 07/20/19 07/20/19 Range/Units 05:37 05:37 WBC 15.5 H (3.8-10.6) k/uL Neutrophils # 12.0 H (1.3-7.7) k/uL Monocytes # 1.1 H (0-1.0) k/uL Glucose 101 H (74-99) mg/dL Assessment and Plan Assessment: Post op day one status post TPA recheck with left iliac stent placement and pharmacomechanical thrombectomy and angioplasty of tibial vessels Left lower extremity pain Thrombosis of the left common iliac artery Complete thrombosis of the left posterior tibial and peroneal artery Status post thrombolytics Plan: Remove cassidy catheter, increase activity as tolerated. Patient instructed on the importance of moving/exercising left lower extremity. Will start patient on Eliquis 5 mg twice a day. Patient may be transferred out of ICU to step down unit. The above dictated assessment and findings were discussed with Dr. Cassidy. The impression and plan of care have been directed as dictated.
--- NOTE | 2019-07-20 11:40 | P.OP ---
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 #3 left posterior tibial and peroneal artery thrombo resolves after thrombectomy Procedure(s) Performed: #1 selective left lower extremity iliofemoral and femoral-popliteal angiogram via existing sheath, catheter #2 percutaneous mechanical thrombectomy with Penumbra CAT 6 device for the left posterior tibial and peroneal arteries #3 percutaneous transluminal balloon angioplasty of left common iliac artery #4 percutaneous transluminal balloon angioplasty of left posterior tibial and peroneal arteries #5 percutaneous stent placement at the left common iliac artery Implants: Left common iliac artery stent Anesthesia: local, other (Moderate conscious sedation x 150 minutes) Surgeon: Tito Lomas Estimated Blood Loss (ml): 25 Pathology: none sent Condition: stable Disposition: ICU Indications for Procedure: 54-year-old gentleman who presents back to the catheter lab for recheck of his left lower extremities after undergoing thrombolytic therapy. Patient states feeling improved with less pain in his lower extremities on the left as well as his foot being warmer. Upon evaluation it was noted that he had a diminished femoral pulse on the left which was improved. He presents today for recheck and possible iliac stenting. Operative Findings: Left common iliac artery with dense atherosclerotic disease and retained thrombus. Left posterior tibial and peroneal artery with occlusion secondary to thrombosis. Description of Procedure: After written and informed consent was obtained, All risks, benefits, complications were discussed with the patient in full detail he was brought to the Costumer Assistant for procedure. He was laid in a supine position and the area of the existing sheath was prepped, draped in the usual sterile fashion. Utilizing the existing catheter and angiogram was obtained of the left lower which demonstrated significant improvement of the left iliac and external iliac occlusion/thrombus. There was some residual atherosclerotic disease and calcification noted at the common iliac artery on the left. 035 guidewire was then placed down the superficial femoral artery followed by a quick cross catheter. Selective angiogram of the left femoral, popliteal and below knee vessels was then obtained demonstrating brisk flow through the superficial femoral, popliteal and anterior tibial artery down to the foot. There was thrombosis noted in the peroneal and posterior tibial artery. At that time we placed a thrombectomy catheter into the posterior tibial artery and suction thrombectomy was performed with minimal improvement. At that time an 035 Glidewire advantage was then placed and the 5 Guamanian sheath in the right common femoral artery was with a 6 Guamanian 55 cm Raabe sheath. A CAT 6 penumbra device was then attempted to be placed through the sheath. We were unable to place the catheter and needed to upsize the sheath so an 8 Guamanian Raabe sheath Was then placed. Multiple passes were performed with the penumbra suction catheter across the posterior tibial and peroneal arteries with good improvement of the lumen gain. Percutaneous transluminal balloon angioplasty was then performed across both areas of stenotic portions of the posterior tibial and peroneal artery with a 4 x100mm balloon. Thrombolysis with TPA and nitroglycerin were also given to help with vascular flow to the foot. Once completed selective angiogram of the tibial vessels was performed demonstrating brisk flow to the foot. Attention was then placed back to the iliac artery. Balloon angioplasty was performed across the iliac narrowing and calcification with an 8 x 40 mm balloon with slight improvement of the narrowed area. A 9 x 40 mm EV3 self- expandable open celled stent was then placed across the lesion. Final antegrade was then obtained demonstrating good brisk flow through the iliac as well as down to the below knee tibial arteries with runoff. All guidewires and catheters were then removed and an 8 Guamanian Angio-Seal was placed in the right common femoral artery. The area was cleansed and dressings were placed. Patient tolerated the procedure well and had multiphasic signal in the DP and PT on the left with good capillary refill. He was then sent to the ICU for recovery.
--- NOTE | 2019-07-20 21:18 | P.PN ---
Progress Note - Text Progress Note Date: 07/20/19 Presenting complaint: Left leg. Interval history: 54-year-old patient of Dr. mcdnaiel from [place]. Patient been having pain in his toes off-and-on for 2 or 3 weeks. He then the pain in the left cough which became severe for about a week. CT angiogram showed a complete occlusion of the left common iliac artery and his vision. There was some collaterals noted. His also complete thrombosis of the left posterior tibial and peroneal artery. Patient is put on IV heparin. Subsequently thrombolysis was carried out followed by patient be started on oral anticoagulation. Patient has some residual pain in the left leg. Subsequently patient had balloon angioplasty followed by stent placement at the left common iliac artery. Review of systems: Was done for constitutional, cardiovascular, GI, pulmonary. Extremities relevant finding as above Active Medications Apixaban (Eliquis) 5 mg PO BID ERIC Last Admin: 07/20/19 20:37 Dose: 5 mg Documented by: Hydromorphone HCl (Dilaudid) 1 mg IVP Q4HR PRN PRN Reason: Pain Last Admin: 07/20/19 16:31 Dose: 1 mg Documented by: Naloxone HCl (Narcan) 0.2 mg IV Q2M PRN PRN Reason: Opioid Reversal Ondansetron HCl (Zofran) 4 mg IVP Q8HR PRN PRN Reason: Nausea And Vomiting On examination: VITAL SIGNS: 98.2, 87, 22, 151/99, 98% room air GENERAL APPEARANCE: Average build. Sitting up in a recliner, comfortable. HEENT: Normal external appearance of nose and ear. Oral cavity normal EYES: Pupils equal. Conjunctiva normal. NECK: JVD not raised. Mass not palpable. RESPIRATORY: Respiratory effort normal. Lungs slightly decreased breath sounds. CARDIOVASCULAR: First and second sounds normal. No edema. ABDOMEN: Soft. Liver and spleen not palpable. No tenderness. No mass palpable. Bruising in the right groin. PSYCHIATRY: Alert and oriented x3. Mood and affect normal. EXTREMITY: Distal lower extremity warmth INVESTIGATIONS, reviewed in the clinical context: White count 15.5 hemoglobin 14 potassium 4.2 creatinine 0.79 2-D echo-EF 60 half a 65% Assessment: -Acute common iliac, left posterior tibial, peroneal artery complete thrombosis. -Procedure-thrombolysis, followed by thrombectomy, and common iliac stent placement -Reactive leukocytosis Plan: Patient is started eliquis. We'll also add a baby aspirin. And Lipitor. We'll check lipid panel in the morning. Care was discussed with the patient question were answered.
[2019-07-21] MEDS: HYDROmorphone 1 MG/ML 1 ML SYRINGE IVP PRN (05:26)
[2019-07-21 05:37] LABS: Basophils # (A) 0.2 k/uL (0-0.2); Basophils % (A) 1 %; Eosinophils # (A) 0.3 k/uL (0-0.7); Eosinophils % (A) 2 %; HCT 42.1 % (39.0-53.0); HGB 13.9 gm/dL (13.0-17.5); Lymphocytes # (A) 2.2 k/uL (1.0-4.8); Lymphocytes % (A) 17 %; MCHC 33.1 g/dL (31.0-37.0); MCV 87.4 fL (80.0-100.0); Monocytes # (A) 1.2 k/uL (0-1.0); Monocytes % (A) 9 %; Neutrophils # (A) 8.7 k/uL (1.3-7.7); Neutrophils % (A) 68 %; Platelet Count 273 k/uL (150-450); RBC 4.81 m/uL (4.30-5.90); RDW 12.2 % (11.5-15.5); WBC 12.8 k/uL (3.8-10.6)
[2019-07-21 06:18] LABS: African American GFR (CKD) >90 (>60 ml/min/1.73 sqM); Anion Gap 8 mmol/L; Blood Urea Nitrogen 11 mg/dL (9-20); Calcium 8.9 mg/dL (8.4-10.2); Carbon Dioxide 27 mmol/L (22-30); Chloride 102 mmol/L (98-107); Cholesterol 162 mg/dL (<200); Glucose 99 mg/dL (74-99); HDL Cholesterol 34 mg/dL (40-60); LDL Cholesterol,Calculated 107 mg/dL (0-99); Non-African American GFR(CKD) >90 (>60 ml/min/1.73 sqM); Potassium 4.1 mmol/L (3.5-5.1); Sodium 137 mmol/L (137-145); Triglycerides 104 mg/dL (<150)
[2019-07-21] MEDS ORDERED: GABAPENTIN 300 MG CAP PO SCH (09:00)
[2019-07-21] MEDS ORDERED: ASPIRIN 81 MG PO SCH (09:00)
[2019-07-21] MEDS ORDERED: ATORVASTATIN 40 MG TAB PO SCH (09:00)
[2019-07-21] MEDS: APIXABAN 5 MG TAB PO SCH (09:05)
--- NOTE | 2019-07-21 10:05 | P.PN ---
Subjective Progress Note Date: 07/21/19 Patient seen and evaluated lying in bed. Patient states he has continued discomfort with numbness and tingling some sharp pains into the left lower extremity and foot. Patient states he was up and ambulating yesterday, patient reports he is voiding and had bowel movement. Tolerating his diet. Patient states he believes he is ready to be discharged today. Objective - Vital Signs Vital signs: Vital Signs Temp 98.0 F 07/21/19 04:00 Pulse 78 07/21/19 05:00 Resp 15 07/21/19 05:00 BP 121/94 07/21/19 04:00 Pulse Ox 96 07/21/19 04:00 Intake & Output 07/20/19 07/21/19 07/21/19 18:59 06:59 18:59 Intake Total 650 100 Output Total 400 850 Balance 250 -750 Weight 92.4 kg Intake: IV 250 Sodium Chloride 0.9% 1, 250 000 ml @ 50 mls/hr IV . Q20H [facility] Rx#:[id number] Oral 400 100 Output: Urine 400 850 Other: Voiding Method Indwelling Catheter Urinal - Exam General appearance: The patient is alert, oriented, in no acute distress. HET: Head is normocephalic and atraumatic. Heart: S1 S2. Regular rate and rhythm. Lungs: No crackles or wheezes are heard. Abdomen: Soft, nontender, nondistended with bowel sounds. Extremities: Bilateral lower extremities warm to touch with good capillary refill. Left lower extremity foot TTP, positive monophasic DP doppler signal, palpable PT. Right groin with eccymosis, without any evidence of bleeding or hematoma. Right palpable DP and PT pulses. - Labs CBC & Chem 7: 07/21/19 05:08 07/21/19 05:08 Labs: Abnormal Lab Results - Last 24 Hours (Table) 07/19/19 07/21/19 07/21/19 Range/Units 05:25 05:08 05:08 WBC 12.8 H (3.8-10.6) k/uL Neutrophils # 8.7 H (1.3-7.7) k/uL Monocytes # 1.2 H (0-1.0) k/uL Pathologist Review See comment A LDL Cholesterol, Calc 107 H (0-99) mg/dL HDL Cholesterol 34 L (40-60) mg/dL Assessment and Plan Assessment: Status post TPA recheck with left iliac stent placement and pharmacomechanical thrombectomy and angioplasty of tibial vessels Left lower extremity pain Thrombosis of the left common iliac artery Complete thrombosis of the left posterior tibial and peroneal artery Status post thrombolytics Plan: Patient instructed on the importance of moving/exercising left lower extremity. Continue with increased activity. Start patient on gabapentin 300 mg 3 times a day. Patient is stable from a vascular standpoint and may be discharged home on Eliquis and gabapentin. The patient is to follow-up in the office with Dr. Lomas in one week. The above dictated assessment and findings were discussed with Dr. Spangler. The impression and plan of care have been directed as dictated.
[2019-07-21 10:41] VITALS: TEMP 98
[2019-07-21 14:14] VITALS: BP 138/78; PULSE 86; RESP 14
--- NOTE | 2019-07-21 22:26 | P.DS ---
Providers Date of admission: 07/17/19 23:36 Expected date of discharge: 07/21/19 Attending physician: Juan Acevedo Consults: 07/17/19 23:23 Consult Physician Routine Consulting Provider: Tito Lomas Consult Reason/Comments: Arterial occlusion left lower extremity Do you want consulting provider notified?: Already Contacted Primary care physician: Rg Srinivasan Hospital Course: Presenting complaint: Left leg. Pain Hospital course: 54-year-old patient of Dr. srinivasan from [place]. Patient been having pain in his toes off-and-on for 2 or 3 weeks. He then the pain in the left calf which became severe for about a week. CT angiogram showed a complete occlusion of the left common iliac artery, some collaterals noted, complete thrombosis of the left posterior tibial and peroneal artery. Patient is put on IV heparin. Subsequently thrombolysis was carried out followed by patient be started on oral anticoagulation. Patient has some residual pain in the left leg. Subsequently patient had balloon angioplasty followed by stent placement at the left common iliac artery. Today-pain of the left leg is much improved. Feeling better. Care was discussed with the patient and . Questions were answered. Patient used Tylenol, ice packs, heating pad and activity as tolerated. Just activity as per Dr. Spangler. Discussed the case earlier Dr. Spangler. Patient is informed that he not return to work until cleared by vascular surgery. After outpatient follow- up. Discussion and discharge planning more than 35 minutes Consultants: Dr. Lomas and associates from vascular surgery On examination: VITAL SIGNS: 98, 86, 14, 138/78, 96% room air GENERAL APPEARANCE:, Comfortable HEENT: Normal external appearance of nose and ear. Oral cavity normal EYES: Pupils equal. Conjunctiva normal. NECK: JVD not raised. Mass not palpable. RESPIRATORY: Respiratory effort normal. Lungs slightly decreased breath sounds. CARDIOVASCULAR: First and second sounds normal. No edema. ABDOMEN: Soft. Liver and spleen not palpable. No tenderness. No mass palpable. Bruising in the right groin. PSYCHIATRY: Alert and oriented x3. Mood and affect normal. EXTREMITY: Distal lower extremity warm INVESTIGATIONS, reviewed in the clinical context: White count 12.8 hemoglobin 13.9 and creatinine 0.86 Previous testing White count 15.5 hemoglobin 14 potassium 4.2 creatinine 0.79 2-D echo-EF 60-65% LDL 107 Assessment: -Acute common iliac, left posterior tibial, peroneal artery complete thrombosis. -Procedure-thrombolysis, followed by thrombectomy, and common iliac stent placement -Reactive leukocytosis Disposition: Home Plan - Discharge Summary Discharge Rx Participant: Yes New Discharge Prescriptions: New Apixaban [Eliquis] 5 mg PO BID 30 Days #60 tab Aspirin 81 mg PO DAILY #30 chew Atorvastatin [Lipitor] 40 mg PO DAILY #30 tab Acetaminophen Tab [Tylenol Tab] 650 mg PO Q6H PRN #30 tablet PRN Reason: Pain Continue Olopatadine HCl [Patanol] 1 drop BOTH EYES Q12H PRN PRN Reason: Allergy Symptoms Discharge Medication List Olopatadine HCl [Patanol] 1 drop BOTH EYES Q12H PRN 07/18/19 [History] Apixaban [Eliquis] 5 mg PO BID 30 Days #60 tab 07/20/19 [Rx] Acetaminophen Tab [Tylenol Tab] 650 mg PO Q6H PRN #30 tablet 07/21/19 [Rx] Aspirin 81 mg PO DAILY #30 chew 07/21/19 [Rx] Atorvastatin [Lipitor] 40 mg PO DAILY #30 tab 07/21/19 [Rx] Follow up Appointment(s)/Referral(s): Tito Lomas DO [STAFF PHYSICIAN] - 10 Days (02 August 2019 at 1400.) Rg Srinivasan MD [Primary Care Provider] - 1-2 days (Thursday July 25, 2019 at 1245) Patient Instructions/Handouts: Mechanical Thrombectomy (DC) Discharge/Stand Alone Forms: Work/Release Restrictions Form Discharge Disposition: HOME SELF-CARE
== END 2019-07-21 14:31 | disposition home or self-care (01) | DRG 253 ==
LOC: EC 18:09 → 3SCARD 23:36 → 2SICU 07-18 16:55
PROVIDERS: ADMIT Hospitalist; ATTEND Hospitalist
PROC: B41D1ZZ Fluoroscopy of Aorta and Bilateral Lower Extremity Arteries using Low Osmolar Contrast (ICD-10-PCS; 2019-07-18 19:50)
PROC: 3E06317 Introduction of Other Thrombolytic into Central Artery, Percutaneous Approach (ICD-10-PCS; 2019-07-18 19:50)
PROC: B41G1ZZ Fluoroscopy of Left Lower Extremity Arteries using Low Osmolar Contrast (ICD-10-PCS; 2019-07-18 19:50)
PROC: 3E06317 Introduction of Other Thrombolytic into Central Artery, Percutaneous Approach (ICD-10-PCS; principal; 2019-07-20)
PROC: 047S3ZZ Dilation of Left Posterior Tibial Artery, Percutaneous Approach (ICD-10-PCS; principal; 2019-07-20)
PROC: 047D34Z Dilation of Left Common Iliac Artery with Drug-eluting Intraluminal Device, Percutaneous Approach (ICD-10-PCS; principal; 2019-07-20)
PROC: 047U3ZZ Dilation of Left Peroneal Artery, Percutaneous Approach (ICD-10-PCS; principal; 2019-07-20)
DX: I74.5 Embolism and thrombosis of iliac artery (principal); I74.3 Embolism and thrombosis of arteries of the lower extremities; D72.828 Other elevated white blood cell count; G89.29 Other chronic pain; I99.8 Other disorder of circulatory system; K57.30 Diverticulosis of large intestine without perforation or abscess without bleeding; M54.5 Low back pain; Z87.891 Personal history of nicotine dependence; Z88.6 Allergy status to analgesic agent; Z90.49 Acquired absence of other specified parts of digestive tract; Z82.49 Family history of ischemic heart disease and other diseases of the circulatory system; Z80.9 Family history of malignant neoplasm, unspecified
CPT/HCPCS: 36200; 36246; 36415; 37184; 37228; 37232; 37236; 75625; 75635; 75710; 75894; 75898; 76937; 80048; 80053; 80061; 82565; 83036; 83605; 84520; 85025; 85384; 85610; 85730; 86850; 86900; 86901; 93306; 96365; 96375; 96376; 99284

== ENCOUNTER 2022-04-29 18:10 | Emergency (ER) | payer BC ==
[2022-04-29 18:46] VITALS: RESP 18; TEMP 98.2
[2022-04-29] MEDS ORDERED: SODIUM CHLORIDE 0.9% 1,000 ML IV STA (20:59)
[2022-04-29] MEDS ORDERED: HYDROmorphone 0.5 MG/0.5 ML SYRINGE IVP STA (21:00)
--- NOTE | 2022-04-29 21:17 | US ---
EXAMINATION TYPE: US venous doppler duplex LE LT DATE OF EXAM: 04/29/2022 8:12 PM COMPARISON: NONE CLINICAL HISTORY: pain. pain in left knee x 2 days. Hx of DVT in left leg 2 years ago. Pt on blood th inners SIDE PERFORMED: Left TECHNIQUE: The lower extremity deep venous system is examined utilizing real time linear array sonog gaby with graded compression, doppler sonography and color-flow sonography. VESSELS IMAGED: Common Femoral Vein Deep Femoral Vein Greater Saphenous Vein * Femoral Vein Popliteal Vein Small Saphenous Vein * Proximal Calf Veins (* superficial vessels) Left Leg: No evidence of DVT seen. IMPRESSION: No evidence of deep vein thrombosis in the left leg.
[2022-04-29 21:20] LABS: Basophils # (A) 0.1 k/uL (0-0.2); Basophils % (A) 0 %; Eosinophils # (A) 0.2 k/uL (0-0.7); Eosinophils % (A) 2 %; HCT 40.1 % (39.0-53.0); HGB 13.9 gm/dL (13.0-17.5); Lymphocytes # (A) 1.9 k/uL (1.0-4.8); Lymphocytes % (A) 14 %; MCH 29.2 pg (25.0-35.0); MCHC 34.5 g/dL (31.0-37.0); MCV 84.6 fL (80.0-100.0); Mean Platelet Volume 7.6; Monocytes % (A) 7 %; Neutrophils # (A) 10.7 k/uL (1.3-7.7); Neutrophils % (A) 75 %; Platelet Count 385 k/uL (150-450); RBC 4.74 m/uL (4.30-5.90); RDW 11.8 % (11.5-15.5); WBC 14.2 k/uL (3.8-10.6)
[2022-04-29 21:31] LABS: ALT 54 U/L (4-49); AST 40 U/L (17-59); African American GFR (CKD) >90 (>60 ml/min/1.73 sqM); Albumin 3.9 g/dL (3.5-5.0); Alkaline Phosphatase 72 U/L (38-126); Anion Gap 7 mmol/L; Blood Urea Nitrogen 16 mg/dL (9-20); Calcium 8.7 mg/dL (8.4-10.2); Carbon Dioxide 24 mmol/L (22-30); Chloride 102 mmol/L (98-107); Glucose 133 mg/dL (74-99); Non-African American GFR(CKD) >90 (>60 ml/min/1.73 sqM); Potassium 4.4 mmol/L (3.5-5.1); Sodium 133 mmol/L (137-145); Total Bilirubin 0.5 mg/dL (0.2-1.3); Total Protein 7.4 g/dL (6.3-8.2)
--- NOTE | 2022-04-29 21:47 | CT ---
EXAMINATION TYPE: CT brain cspine wo con DATE OF EXAM: 04/29/2022 COMPARISON: None HISTORY: Syncope CT DLP: 1510.2 mGycm Automated exposure control for dose reduction was used. Images of the brain and cervical spine obtained with no contrast. Ventricles and sulci appear normal. There is no mass effect or midline shift. No sign of intracranial hemorrhage. Calvarium is intact. There is normal aeration of the mastoid sinuses. The cervical vertebra have normal alignment. There is mild narrowing at C3-4 disc space. There is mil d narrowing at C5-6 disc space. Facet joints are intact. No compression fracture. Prevertebral soft t issues are intact. IMPRESSION: Negative CT scan of the brain. Negative CT scan cervical spine.
--- NOTE | 2022-04-29 21:49 | XR ---
EXAMINATION TYPE: XR chest 2V DATE OF EXAM: 04/29/2022 COMPARISON: NONE HISTORY: Syncope TECHNIQUE: 2 views FINDINGS: Heart and mediastinum are normal. Lungs are clear. Diaphragm is normal. Bony thorax is inta ct. IMPRESSION: Normal chest.
--- NOTE | 2022-04-29 21:49 | ED ---
Extremity Problem HPI - General Chief complaint: Extremity Problem,Nontraumatic Stated complaint: lt leg pain Time Seen by Provider: 04/29/22 20:11 Source: patient Mode of arrival: ambulatory - History of Present Illness Initial comments: Patient is a 57-year-old male presents with a history of arterial thrombosis s/p thrombolysis and thrombectomy who presents to the emergency department with a chief complaint of knee pain. Patient states symptoms started and the inside of his left knee last night. Describes as a constant aching. There is no radiation. Denies injury. Pain worse with walking. Patient has not taken any medication for pain. He denies leg numbness, tingling, weakness, coldness. 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 Patient had arterial thrombosis in June 2019. He was originally taking Eliquis and switched to Plavix about 6 months ago due to issues obtaining Eliquis. Patient reports being compliant on Plavix. Has yearly angiography of LLE, last this past June which he states was normal. He denies history of DVT and PE. Does admit to family history of both DVT and PE. Patient also notes that he had a syncopal episode today. States that he was feeling lightheaded and fatigued in his bathroom after taking Flexeril around 2 PM this afternoon. Patient states he woke up on the bathroom floor. Unknown LOC. He is unsure if he hit his head. Again he does take blood thinners. He denies history of syncope and arrhythmia. Does not know about cardiac family history. Recently starting taking Flexeril for shoulder injury. He denies fever, chills, headache, double vision, blurry vision, lightheadedness, dizziness, chest pain, palpitations, shortness of breath, abdominal pain, nausea, vomiting, diarrhea. Denies alcohol use. Denies tobacco use and illicit drug use. Reports left wrist pain from fall. - Related Data Home Medications Medication Instructions Recorded Confirmed Olopatadine HCl [Patanol 0.1%] 1 drop BOTH EYES Q12H PRN 07/18/19 07/18/19 Previous Rx's Medication Instructions Recorded Apixaban [Eliquis] 5 mg PO BID 30 Days #60 tab 07/20/19 Acetaminophen Tab [Tylenol Tab] 650 mg PO Q6H PRN #30 tablet 07/21/19 Aspirin 81 mg PO DAILY #30 chew 07/21/19 Atorvastatin [Lipitor] 40 mg PO DAILY #30 tab 07/21/19 Allergies Allergy/AdvReac Type Severity Reaction Status Date / Time bee venom protein (honey bee) Allergy Swelling Verified 04/29/22 21:34 ibuprofen [From Motrin] AdvReac Nausea & Verified 07/18/19 08:13 Vomiting & Diarrhea morphine AdvReac Nausea & Verified 07/20/19 13:09 Vomiting Review of Systems ROS Statement: Those systems with pertinent positive or pertinent negative responses have been documented in the HPI. ROS Other: All systems not noted in ROS Statement are negative. Past Medical History Past Medical History: No Reported History Additional Past Medical History / Comment(s): blood thinners for clot in left leg History of Any Multi-Drug Resistant Organisms: None Reported Past Surgical History: Appendectomy Additional Past Surgical History / Comment(s): left knee orthoscopic surgery Past Anesthesia/Blood Transfusion Reactions: No Reported Reaction Past Psychological History: No Psychological Hx Reported Past Alcohol Use History: None Reported Past Drug Use History: None Reported - Past Family History Father Family Medical History: Myocardial Infarction (RI) Additional Family Medical History / Comment(s): of RI at age 50 Mother Family Medical History: Cancer, Coronary Artery Disease (CAD) General Exam General appearance: alert, in no apparent distress Eye exam: Present: normal appearance, PERRL, EOMI. Absent: scleral icterus, conjunctival injection, periorbital swelling ENT exam: Present: mucous membranes moist Neck exam: Present: normal inspection Respiratory exam: Present: normal lung sounds bilaterally. Absent: respiratory distress, wheezes, rales, rhonchi, stridor Cardiovascular Exam: Present: regular rate, normal rhythm, normal heart sounds. Absent: systolic murmur, diastolic murmur, rubs, gallop, clicks Left Shoulder Exam: Present: normal inspection, full ROM. Absent: tenderness, swelling Upper Arm exam: Present: normal inspection, full ROM, swelling. Absent: tenderness Elbow exam: Present: full ROM. Absent: tenderness, swelling Forearm Wrist exam: Present: normal inspection, tenderness (anterior wrist on both radial and ulnar region ). Absent: swelling, laceration, ecchymosis, deformity, crepitus, erythema, tenderness over anatomical snuff box, pain with axial thumb loading Neuro motor exam: Present: wrist extension intact, thumb opposition intact, thumb IP flexion intact, thumb adduction intact, fingers 2-5 abduction intact Neurosensory exam: Present: radial nerve intact, ulnar nerve intact, median nerve intact Vascular: Present: normal capillary refill, radial pulse, brachial pulse, ulnar pulse. Absent: vascular compromise Left Upper Leg exam: Present: normal inspection, full ROM. Absent: tenderness, swelling Knee exam: Present: normal inspection, full ROM, tenderness (medial knee point tenderness inferiorly ). Absent: swelling, abrasion, laceration, ecchymosis, deformity, crepitus, dislocation, erythema, effusion, posterior draw sign, pain/laxity with valgus, pain/laxity with varus Lower Leg exam: Present: normal inspection, full ROM. Absent: tenderness, swelling Ankle exam: Present: normal inspection, full ROM. Absent: tenderness, swelling Foot/Toe exam: Present: normal inspection, full ROM. Absent: tenderness, swelling Neurovascular tendon exam: Present: no vascular compromise. Absent: motor deficit, sensory deficit, extremity cold to touch, pallor, decreased fine/light touch, foot drop, significant pain with passive ROM of distal joint Course Vital Signs 04/29/22 18:43 Temperature 98.2 F Pulse Rate 91 Respiratory 18 Rate Blood Pressure 115/70 O2 Sat by Pulse 100 Oximetry Medical Decision Making - Medical Decision Making This is a 57 year-old male presenting with multiple complaints. The left lower extremity is normal appearing, skin uniform in color. 2+ pulses. Warm. No sensation deficit. No paresthesias. Full range of motion. No pain with ROM. No strength deficit. There is point tenderness of the left medial knee without palpable cord, swelling, erythema, ecchymosis. Left lower extremity ultrasound with Doppler obtained and interpreted by me which shows no evidence of DVT in the left leg. Due to fall on blood thinners brain and cervical CT without contrast was obtained and interpreted by me which is negative for acute process. Left wrist and left hand x-ray obtained and interpreted by me which are negative for acute process. There is no anatomical snuffbox tenderness. Etiology of syncope explored. EKG obtained interpreted by me which shows sinus rhythm, no ST segment or T-wave changes. Ventricular rate 75. Laboratory studies obtained. There is mild leukocytosis of 14.2. Mild hyponatremia at 133 which was replenished with fluid bolus. COVID-19 and influenza are not detected. Chest x-ray obtained interpreted by me which shows no acute cardiopulmonary process. Pain controlled. Results discussed with patient. At this time there are no diagnostic studies to explain patient's knee pain and syncopal episode today. Knee pain possibly due to repetitive stress at work. Syncopal episode possibly related to Flexeril which is new medication to patient. Patient will be discharged with strict return parameters. We discussed risks of muscle relaxants in detail. He has several allergies, therefore instructed to follow-up with his primary care provider and take Tylenol for pain. Dr. Barbosa is my attending. - Lab Data Result diagrams: 04/29/22 21:05 04/29/22 21:05 Lab Results 04/29/22 04/29/22 04/29/22 Range/Units 21:05 21:05 22:03 WBC 14.2 H (3.8-10.6) k/uL RBC 4.74 (4.30-5.90) m/uL Hgb 13.9 (13.0-17.5) gm/dL Hct 40.1 (39.0-53.0) % MCV 84.6 (80.0-100.0) fL MCH 29.2 (25.0-35.0) pg MCHC 34.5 (31.0-37.0) g/dL RDW 11.8 (11.5-15.5) % Plt Count 385 (150-450) k/uL MPV 7.6 Neutrophils % 75 % Lymphocytes % 14 % Monocytes % 7 % Eosinophils % 2 % Basophils % 0 % Neutrophils # 10.7 H (1.3-7.7) k/uL Lymphocytes # 1.9 (1.0-4.8) k/uL Monocytes # 1.0 (0-1.0) k/uL Eosinophils # 0.2 (0-0.7) k/uL Basophils # 0.1 (0-0.2) k/uL Sodium 133 L (137-145) mmol/L Potassium 4.4 (3.5-5.1) mmol/L Chloride 102 (98-107) mmol/L Carbon Dioxide 24 (22-30) mmol/L Anion Gap 7 mmol/L BUN 16 (9-20) mg/dL Creatinine 0.80 (0.66-1.25) mg/dL Est GFR (CKD-EPI)AfAm >90 (>60 ml/min/1.73 sqM) Est GFR (CKD-EPI)NonAf >90 (>60 ml/min/1.73 sqM) Glucose 133 H (74-99) mg/dL Calcium 8.7 (8.4-10.2) mg/dL Total Bilirubin 0.5 (0.2-1.3) mg/dL AST 40 (17-59) U/L ALT 54 H (4-49) U/L Alkaline Phosphatase 72 (38-126) U/L Total Protein 7.4 (6.3-8.2) g/dL Albumin 3.9 (3.5-5.0) g/dL Coronavirus (PCR) (Not Detectd) Influenza Type A RNA Not Detected (Not Detectd) Influenza Type B (PCR) Not Detected (Not Detectd) 04/29/22 Range/Units 22:03 WBC (3.8-10.6) k/uL RBC (4.30-5.90) m/uL Hgb (13.0-17.5) gm/dL Hct (39.0-53.0) % MCV (80.0-100.0) fL MCH (25.0-35.0) pg MCHC (31.0-37.0) g/dL RDW (11.5-15.5) % Plt Count (150-450) k/uL MPV Neutrophils % % Lymphocytes % % Monocytes % % Eosinophils % % Basophils % % Neutrophils # (1.3-7.7) k/uL Lymphocytes # (1.0-4.8) k/uL Monocytes # (0-1.0) k/uL Eosinophils # (0-0.7) k/uL Basophils # (0-0.2) k/uL Sodium (137-145) mmol/L Potassium (3.5-5.1) mmol/L Chloride (98-107) mmol/L Carbon Dioxide (22-30) mmol/L Anion Gap mmol/L BUN (9-20) mg/dL Creatinine (0.66-1.25) mg/dL Est GFR (CKD-EPI)AfAm (>60 ml/min/1.73 sqM) Est GFR (CKD-EPI)NonAf (>60 ml/min/1.73 sqM) Glucose (74-99) mg/dL Calcium (8.4-10.2) mg/dL Total Bilirubin (0.2-1.3) mg/dL AST (17-59) U/L ALT (4-49) U/L Alkaline Phosphatase (38-126) U/L Total Protein (6.3-8.2) g/dL Albumin (3.5-5.0) g/dL Coronavirus (PCR) Not Detected (Not Detectd) Influenza Type A RNA (Not Detectd) Influenza Type B (PCR) (Not Detectd) Disposition Clinical Impression: Knee pain, Syncope, Wrist pain, Fall Disposition: HOME SELF-CARE Condition: Good Instructions (If sedation given, give patient instructions): Musculoskeletal Pain (ED) Additional Instructions: Take Tylenol for pain. Applying ice and/or heat to the knee and wrist may help symptoms. Rest and elevate knee and wrist. Follow up with primary care provider in one to 2 days. Return to emergency department if you experience new, concerning, or worsening symptoms. Is patient prescribed a controlled substance at d/c from ED?: No Referrals: None,Stated [Primary Care Provider] - 1-2 days Time of Disposition: 22:33
--- NOTE | 2022-04-29 21:53 | XR ---
EXAMINATION TYPE: XR hand complete LT DATE OF EXAM: 04/29/2022 COMPARISON: NONE HISTORY: Fall. Pain TECHNIQUE: 3 views FINDINGS: The metacarpals are intact. I see no fracture nor dislocation. Joint spaces are normal. IMPRESSION: Negative left hand exam. No fracture.
--- NOTE | 2022-04-29 21:54 | XR ---
EXAMINATION TYPE: XR wrist complete LT DATE OF EXAM: 04/29/2022 COMPARISON: NONE HISTORY: Pain TECHNIQUE: 4 views FINDINGS: The carpal bones are intact. There is narrowing and spurring at the first carpometacarpal j oint. There are no erosions. IMPRESSION: Osteoarthritis at the base of the thumb. No fracture.
[2022-04-29 22:46] VITALS: BP 113/81; PULSE 76
== END 2022-04-29 22:49 | disposition home or self-care (01) ==
LOC: EC 18:10
DX: R55 Syncope and collapse (principal); M25.562 Pain in left knee; D72.829 Elevated white blood cell count, unspecified; M25.532 Pain in left wrist; E87.1 Hypo-osmolality and hyponatremia; Z88.5 Allergy status to narcotic agent; Z91.030 Bee allergy status; Z88.6 Allergy status to analgesic agent; Z20.822 Contact with and (suspected) exposure to COVID-19; Z79.02 Long term (current) use of antithrombotics/antiplatelets; Z79.01 Long term (current) use of anticoagulants; Z79.82 Long term (current) use of aspirin
CPT/HCPCS: 36415; 93005; 80053; 85025; 87502; 87635; 73110; 73130; 71046; 93971; 72125; 70450; 99284; 96374; 96361; J1170

== ENCOUNTER → 2022-05-05 | Outpatient (CLI) | payer BC ==
--- NOTE | 2022-05-05 15:55 | CT ---
EXAMINATION TYPE: CT thoracic spine wo con DATE OF EXAM: 05/05/2022 COMPARISON: None. HISTORY: upper back pain x1 month. pt states felt pop while moving furniture. Collapsed vertebra per order. CT DLP: 727.30 mGycm Automated exposure control for dose reduction was used. FINDINGS: Thoracic spine shows slight scoliotic curvature in the upper thoracic spine. No acute fracture or dis location is seen. Vertebral body heights and disc space heights are fairly well maintained. Mild mult ilevel anterior and lateral spurring is seen. Spinal canal is grossly preserved. Visualized portion of both lungs are grossly clear. Mild edematous change in the upper lobes is seen. Ascending aortic aneurysm up to 4.3 cm axial image 53 is incidentally noted. Slight low density thic kening to left adrenal gland favors benign lipid rich hyperplasia. IMPRESSION: No acute or subacute fracture in the thoracic spine.
== END | disposition home or self-care (01) ==
LOC: RADCTMAIN 15:17
PROVIDERS: ATTEND Nurse Practitioner Adult Health
DX: M48.54XA Collapsed vertebra, not elsewhere classified, thoracic region, initial encounter for fracture (principal)
CPT/HCPCS: 72128

== ENCOUNTER → 2022-05-13 | Outpatient (CLI) | payer BC ==
--- NOTE | 2022-05-13 16:35 | CT ---
EXAMINATION TYPE: CT angio abdomen pelvis CT DLP: 879 mGycm, Automated exposure control for dose reduction was used. DATE OF EXAM: 05/13/2022 4:10 PM COMPARISON: CTA abdomen aorta with runoff 07/17/2019. CLINICAL INDICATION:Male, 57 years old with history of I71.40 ABDOMINAL AORTIC ANEURYSM, WITHOUT RUPT URE,; TECHNIQUE: Multiple thin slice sub-millimeter images were obtained through the abdomen and pelvis bef ore and after administration of contrast. Patient was given Isovue 370, 100 cc intravenously. 3-D r econstructed images and maximum intensity projection images were obtained of the abdomen, pelvis, and lower extremities. FINDINGS: CTA Abdomen and pelvis: The abdominal aorta does not demonstrate aneurysmal dilatation. Mild atheros clerotic plaquing is identified within the abdominal aorta. The origins of the superior mesenteric a rtery, renal arteries, inferior mesenteric artery, and celiac axis are widely patent. There is a jenkins nt stent involving the left common iliac artery stenting to the origin of the left external iliac art geovanna. The left internal iliac artery is occluded again. There appears to be reconstitution distally. VISCERA: The liver, spleen, adrenal glands, kidneys, pancreas, and gallbladder are not optimally enha nced due the arterial phase utilized. LIVER: Unremarkable GALLBLADDER AND BILE DUCTS: Unremarkable. PANCREAS: Unremarkable. SPLEEN: Unremarkable. ADRENAL GLANDS: Unremarkable. KIDNEYS AND URETERS: No evidence of hydronephrosis or renal calculus. The ureters are unremarkable. Retroaortic left renal vein. PELVIS BLADDER: Unremarkable REPRODUCTIVE: Unremarkable. ABDOMEN & PELVIS STOMACH AND BOWEL: Distal colonic diverticulosis without evidence for acute diverticulitis. No eviden ce of bowel obstruction. PERITONEUM: No evidence of pneumoperitoneum or free fluid. MUSCULOSKELETAL: No acute osseous abnormalities. No aggressive osseous lesions. Degenerative changes at L5-S1 with disc space narrow, endplate sclerosis, anterior osteophytosis, and vacuum disc disease. LYMPH NODES: No gross evidence for lymphadenopathy. SOFT TISSUE/ABDOMINAL WALL: Small fat filled umbilical hernia. IMPRESSION 1. No evidence of abdominal aortic aneurysm. 2. Patent left common iliac artery stent. 3. Left internal iliac artery occlusion redemonstrated. There appears to be reconstitution distally. 4. Colonic diverticulosis without evidence for acute diverticulitis.
== END | disposition home or self-care (01) ==
LOC: RADCTMAIN 14:52
PROVIDERS: ATTEND Family Medicine
DX: I74.5 Embolism and thrombosis of iliac artery (principal); I71.40 Abdominal aortic aneurysm, without rupture, unspecified; K57.30 Diverticulosis of large intestine without perforation or abscess without bleeding
CPT/HCPCS: 74174; Q9967